=== PATIENT | female | born 1970 | race Hispanic/Latino ===

== ENCOUNTER 2017-10-23 08:51 | Emergency (ER) | payer OTHER ==
[~2017-10-23] VITALS: Ht 154.9 cm; Wt 79.4 kg
[2017-10-23] MEDS ORDERED: ACETAMINOPHEN 325 MG TAB PO ONE (09:30)
[2017-10-23 09:35] LABS: CLARITY,URINE CLOUDY (CLEAR); COLOR,URINE YELLOW (YELLOW); KETONES,URINE 3+ (NEGATIVE); LEUKOCYTE ESTERASE ,URINE 2+ (NEGATIVE); NITRITE,URINE NEGATIVE (NEGATIVE); PROTEIN,URINE DIPSTICK TRACE (NEGATIVE); URINE UROBILINOGEN 0.2 mg/dL (0.2 - 1)
[2017-10-23] MEDS ORDERED: ACETAMINOPHEN 325 MG TAB ONE (09:35)
[2017-10-23 09:36] LABS: BILIRUBIN,URINE NEGATIVE (NEGATIVE)
[2017-10-23 09:52] LABS: AMORPHOUS SEDIMENT,URINE RARE (FEW); EPITHELIAL CELLS,URINE FEW /LPF; RBC,URINE 0-5 /HPF (0-5)
[2017-10-23] MEDS ORDERED: ONDANSETRON HCL INJ 2 MG/ML VIAL IV STA (10:15)
[2017-10-23] MEDS ORDERED: SODIUM CHLORIDE 0.9% 1000ML 1,000 ML IV SCH (10:15)
--- NOTE | 2017-10-23 10:17 | Diagnostic Imaging Report ---
PROCEDURE:CHEST SINGLE (PORTABLE) TECHNIQUE:Portable AP chest INDICATION:Cough; fever COMPARISON:None. FINDINGS: Lungs are clear and symmetrically inflated. No pleural effusions. Normal heart size and pulmonary vasculature for technique. Intact skeleton. CONCLUSION: No acute abnormality. Dictated by: Tavon Ya M.D. on 10/23/2017 at 10:17 Electronically approved by: Tavon Ya M.D. on 10/23/2017 at 10:17
[2017-10-23 10:37] LABS: BASOPHILS % 0.3 % (0.0-1.0); HEMATOCRIT 37.5 % (34.2-44.1); HEMOGLOBIN 12.7 g/dL (12.0-16.0); LYMPHOCYTES # (AUTO) 1.5 (1.0-3.2); LYMPHOCYTES % 10.9 % (18.0-39.1); MEAN CORPUSCULAR HEMOGLOBIN 27.1 pg (28-32); MEAN CORPUSCULAR HGB CONC 33.9 g/dL (31-35); MEAN CORPUSCULAR VOLUME 80.1 fL (81-99); MONOCYTES # (AUTO) 0.6 (0.2-0.8); MONOCYTES % 4.1 % (4.4-11.3); NEUTROPHILS # (AUTO) 11.6 (2.1-6.9); NEUTROPHILS % 84.2 % (38.7-80.0); PLATELET COUNT 265 x10e3/uL (140-360); RED BLOOD COUNT 4.68 x10e6/uL (3.6-5.1); RED CELL DISTRIBUTION WIDTH 13.7 % (11.7-14.4)
[2017-10-23] MEDS ORDERED: KETOROLAC TROMETHAMINE 30 MG/ML VIAL IV STA (10:45)
[2017-10-23 10:56] LABS: ALANINE AMINOTRANSFERASE 29 IU/L (0-55); ALBUMIN 3.5 g/dL (3.5-5.0); ALBUMIN/GLOBULIN RATIO 1.1 (0.8-2.0); ALKALINE PHOSPHATASE 95 IU/L (40-150); ANION GAP 13.5 mmol/L (8-16); BLOOD UREA NITROGEN 7 mg/dL (7-26); BUN/CREATININE RATIO 12 (6-25); CARBON DIOXIDE 23 mmol/L (22-29); CHLORIDE 101 mmol/L (98-107); EST GLOMERULAR FILTRATION RATE > 60 ML/MIN (60-); GLUCOSE 138 mg/dL (74-118); POTASSIUM 3.5 mmol/L (3.5-5.1); SODIUM 134 mmol/L (136-145)
[2017-10-23 11:43] VITALS: BP 113/70
== END 2017-10-23 12:10 | disposition home or self-care (01) ==
LOC: ER 08:51
DX: R50.9 Fever, unspecified (principal); R51 Headache; N30.90 Cystitis, unspecified without hematuria
CPT/HCPCS: 36415; 71045; 80053; 81001; 81025; 83518; 85025; 87070; 87400; 99284; J1885; J2405; J7030

== ENCOUNTER 2025-02-11 03:47 | Inpatient (IN) | payer SELFPAY ==
[~2025-02-11] VITALS: Ht 154.9 cm; Wt 120.4 kg
[2025-02-11 04:24] LABS: BASOPHILS % 0.2 % (0.0-1.0); EOSINOPHILS % 0.2 % (0.0-6.0); LYMPHOCYTES % 14.5 % (18.0-39.1); MONOCYTES % 3.0 % (4.4-11.3); NEUTROPHILS % 81.8 % (38.7-80.0); RED CELL DISTRIBUTION WIDTH 13.1 % (11.7-14.4)
[2025-02-11] MEDS: SODIUM CHLORIDE 0.9% 1000ML 1,000 ML IV STA (04:25)
[2025-02-11] MEDS: ONDANSETRON HCL INJ 2MG/ML 2ML 2 MG/ML VIAL IV STA (04:25)
[2025-02-11] MEDS: Morphine 4mg INJECTION 4 MG/ML INJ IV STA (04:25)
[2025-02-11 04:57] LABS: EST GLOMERULAR FILTRATION RATE 94 ML/MIN (>=60)
[2025-02-11] MEDS ORDERED: IOPAMIDOL 370 MG/ML 100 ML INFUS..BTL INJ ONE (05:07)
[2025-02-11 06:39] LABS: EPITHELIAL CELLS,URINE MODERATE /LPF; LEUKOCYTE ESTERASE ,URINE NEGATIVE (NEGATIVE); PROTEIN,URINE DIPSTICK NEGATIVE (NEGATIVE); URINE UROBILINOGEN 1 mg/dL (0.2 - 1); WBC,URINE (MAN) >50 /HPF (0-5)
[2025-02-11] MEDS: INSULIN REGULAR, HUMAN 100 UNIT/1 ML SQ ONE (06:46)
[2025-02-11] MEDS: POTASSIUM CHLORIDE 20 MEQ TAB CR PO STA (06:49)
[2025-02-11] MEDS: SODIUM CHLORIDE 0.9% IRRIG 1,000 ML BTL IR SCH (07:00)
[2025-02-11] MEDS ORDERED: Morphine 2mg Syringe 2 MG/ML SYR IV PRN (07:15)
[2025-02-11] MEDS ORDERED: ONDANSETRON HCL INJ 2MG/ML 2ML 2 MG/ML VIAL IV PRN (07:15)
[2025-02-11] MEDS: SODIUM CHLORIDE 0.9% 1000ML 1,000 ML IV SCH (09:44)
[2025-02-11] MEDS: POTASSIUM CHLORIDE 20MEQ/100ML 100 ML IV SCH (09:44)
[2025-02-11] MEDS ORDERED: HYDRALAZINE HCL 20 MG/ML VIAL IV PRN (10:00)
[2025-02-11 15:02] VITALS: PULSE 88; RESP 18; TEMP 98.5
[2025-02-11 16:14] VITALS: BP 140/78; PULSE 83; RESP 18; TEMP 98.8; O2SAT 97
[2025-02-11] MEDS ORDERED: ATORVASTATIN CA20 MG PO (16:29)
[2025-02-11] MEDS ORDERED: GLIPIZIDE5 MG PO (16:29)
[2025-02-11] MEDS ORDERED: VASOTEC5 MG PO (16:29)
[2025-02-11] MEDS ORDERED: METFORMIN HCL500 MG PO (16:29)
[2025-02-11 17:00] VITALS: BP 140/78; PULSE 83; RESP 19; TEMP 98.8; O2SAT 97
[2025-02-11 20:00] VITALS: BP 157/82; PULSE 90; RESP 17; TEMP 98.8; O2SAT 97
[2025-02-11 21:21] VITALS: BP 163/95; PULSE 90; RESP 17; TEMP 98.8; O2SAT 97
[2025-02-11] MEDS ORDERED: DEXTROSE 50% SYRINGE 50 ML IV PRN (22:00)
[2025-02-12] VITALS (7 sets, daily range): BP systolic 129–155; BP diastolic 74–86; PULSE 81–92; RESP 14–20; TEMP 97.7–98.9; O2SAT 93–99
[2025-02-12] MEDS: INSULIN LISPRO 100 UNIT/1 ML 3ML VIAL SQ SCH
[2025-02-12 06:16] LABS: INR 0.95; NEUTROPHILS % 60.9 % (38.7-80.0); RED CELL DISTRIBUTION WIDTH 13.2 % (11.7-14.4)
[2025-02-12 06:17] LABS: BASOPHILS % 0.3 % (0.0-1.0); EOSINOPHILS % 0.7 % (0.0-6.0); LYMPHOCYTES % 31.8 % (18.0-39.1); MONOCYTES % 6.0 % (4.4-11.3)
[2025-02-12 06:27] LABS: EST GLOMERULAR FILTRATION RATE 107.0 ML/MIN (>=60)
[2025-02-12] MEDS: ACETAMINOPHEN 1000 MG/100 ML IV PRN (12:13)
[2025-02-13] VITALS (7 sets, daily range): BP systolic 129–139; BP diastolic 74–80; PULSE 78–93; RESP 17–20; TEMP 97.6–99.1; O2SAT 95–99
== END 2025-02-13 19:30 | disposition home or self-care (01) | DRG 389 ==
LOC: ER 03:53 → ERHOLD 07:17 → MED/SURG 16:05 → OBSVTOIN 02-12 08:27
PROVIDERS: ADMIT Internal Medicine; ATTEND Internal Medicine
DX: K56.609 Unspecified intestinal obstruction, unspecified as to partial versus complete obstruction (principal); N39.0 Urinary tract infection, site not specified; Z68.43 Body mass index [BMI] 50.0-59.9, adult; E66.9 Obesity, unspecified; R00.0 Tachycardia, unspecified; I10 Essential (primary) hypertension; E11.65 Type 2 diabetes mellitus with hyperglycemia; E78.5 Hyperlipidemia, unspecified; Z90.49 Acquired absence of other specified parts of digestive tract; Z79.84 Long term (current) use of oral hypoglycemic drugs
CPT/HCPCS: 36415; 74018; 74177; 80053; 81001; 82550; 82948; 83690; 84484; 85025; 85610; 85730; 99284; G0378; J0696; J2270; J2405; J3480; J7030; Q9967